=== PATIENT | female | born 2000 | race American Indian/Alaskan Native ===

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

== ENCOUNTER 2021-11-10 17:55 | Emergency (ER) | payer MEDICAID ==
[2021-11-10 19:44] VITALS: BP 137/77
== END 2021-11-11 09:09 | disposition left against medical advice (07) ==
LOC: ED 17:55
DX: R07.89 Other chest pain (principal); R10.9 Unspecified abdominal pain; Z53.21 Procedure and treatment not carried out due to patient leaving prior to being seen by health care provider